=== PATIENT | male | born 1960 | race Caucasian/White ===

== ENCOUNTER 2016-12-13 15:09 | Emergency (ER) | payer OTHER ==
[2016-12-13 14:33] LABS: URINE SOURCE CLEAN CATCH
[2016-12-13 14:41] LABS: URINE APPEARANCE CLEAR; URINE BILIRUBIN NEG (NEG); URINE BLOOD 3+ (NEG); URINE COLOR YELLOW; URINE GLUCOSE NEG (NEG); URINE KETONE NEG (NEG); URINE LEUKOCYTE ESTERASE TRACE (NEG); URINE NITRATE NEG (NEG); URINE PH 5.5 (5-8); URINE PROTEIN NEG (NEG); URINE SPECIFIC GRAVITY 1.012 (1.003-1.035); URINE UROBILINOGEN 0.2 MG/DL (NEG)
[2016-12-13 14:44] LABS: U HYALINE CASTS AUWI 0-2 /[LPF]; URINE BACTERIA AUWI NEG (NEGATIVE); URINE SQUAMOUS EPITHELIAL CELL NONE SEEN /[HPF]
[2016-12-13 14:48] LABS: CULTURE INDICATED? NO
[~2016-12-13 15:09] MED LIST: FERROUS SULFATE PO; HYDROCODON-ACE1 EAC7 PO; HYDROCODON-ACE1 EAC9 PO; KEFLEX500 MG PO; LORTAB 7.5-5001 TAB PO; LOVENOX40 MG/0.4 INJ; NEURONTIN300 MG PO; PRILOSEC20 M1 PO; PRILOSEC20 MG PO; VOLTAREN50 MG PO
== END 2016-12-13 15:25 | disposition home or self-care (01) ==
LOC: CED 15:09
PROVIDERS: Emergency Medicine
DX: N40.0 Benign prostatic hyperplasia without lower urinary tract symptoms (principal); Z88.2 Allergy status to sulfonamides
CPT/HCPCS: 51702; 81003; 99284